=== PATIENT | male | born 1965 | race Two or more races ===

== ENCOUNTER 2016-11-14 18:54 | Inpatient (IN) | payer SELFPAY ==
[~2016-11-14] VITALS: Ht 170.2 cm; Wt 77.2 kg
[2016-11-14 20:20] LABS: Urine Bilirubin Negative (Negative); Urine Blood Negative /uL (Negative); Urine Color Yellow (Yellow); Urine Glucose Normal (Normal); Urine Hyaline Cast FEW /lpf (0 - 2); Urine Ketone Negative (Negative); Urine Mucus FEW (None Seen); Urine Nitrite Negative (Negative); Urine RBC 1 /hpf (0 - 3); Urine Squamous Epithelial Cell FEW /hpf (<5); Urine pH 5.5 (5.0-8.0)
[2016-11-14 20:37] LABS: Basophils # (auto) 0 uL; Basophils % (auto) 0.1 % (0.0-2.0); CONDITION Y; Eosinophils # (auto) 0 uL; Hemoglobin 14.9 g/dL (13.5-17.5); Lymphocytes # (auto) 0.5 uL; Lymphocytes % (auto) 3.9 % (10.0-50.0); Mean Corpuscular Hemoglobin 31.2 pg (28.0-32.0); Mean Corpuscular Volume 91.9 fL (80.0-100.0); Mean Platelet Volume 7.4 fL (7.4-10.4); Monocytes # (auto) 0.4 uL; Monocytes % (auto) 2.7 % (0.0-12.0); Neutrophils # (auto) 12.9 uL; Neutrophils % (auto) 93.3 % (37.0-80.0); Platelet Count (auto) 486 10^3/uL (140-450); White Blood Cell 13.8 10^3/uL (4.4-10.8)
[2016-11-14 21:00] LABS: Albumin 3.9 g/dL (3.4-5.0); Alkaline Phosphatase 66 U/L (45-117); Amylase 57 U/L (25-115); Anion Gap 11 (5-15); Aspartate Aminotransferase 14 U/L (15-37); BUN/Creatinine Ratio 20.2; Bilirubin, Total 1.1 mg/dL (0.2-1.0); Blood Urea Nitrogen 20 mg/dL (7-18); Calcium 8.5 mg/dL (8.5-10.1); Carbon Dioxide 25 mmol/L (21-32); Chloride 93 mmol/L (98-107); GFR African American 102 mL/min; GFR Non-African American 84 mL/min; Glucose 90 mg/dL (74-106); Magnesium 2.1 mg/dL (1.6-2.6); Potassium 4.2 mmol/L (3.5-5.1); Sodium 129 mmol/L (136-145); Total Protein 7.5 g/dL (6.4-8.2)
[2016-11-15] VITALS (22 sets, daily range): BP systolic 77–157; BP diastolic 34–101
[2016-11-15] MEDS ORDERED: SODIUM CHLORIDE 0.9% 500 ML IVB ONE (04:14)
[2016-11-15] MEDS ORDERED: HYDROmorphone HCL 2 MG/ML VL IV ONE (04:15)
[2016-11-15] MEDS ORDERED: ONDANSETRON HCL 4 MG/2 ML VIAL IV ONE (04:15)
[2016-11-15] MEDS ORDERED: PIPERACILLIN-TAZO 4.5GM 100 ML IV ONE (05:45)
[2016-11-15] MEDS ORDERED: metroNIDAZOLE 500MG/100ML 100 ML IV ONE (05:45)
[2016-11-15] MEDS ORDERED: PANTOPRAZOLE SODIUM 40 MG/10 ML VIAL IV ONE (06:00)
[2016-11-15] MEDS ORDERED: SODIUM CHLORIDE 0.9% 1,000 ML IV ONE ×3 (07:00→19:00)
[2016-11-15] MEDS ORDERED: cefTRIAXone 1GM/50ML D5W 50 ML IV ONE (07:00)
[2016-11-15] MEDS ORDERED: MORPHINE SULF INJ 2 MG/ML SYRINGE 1ML IV PRN (07:00)
[2016-11-15] MEDS ORDERED: NITROGLYCERIN 0.4 MG SL TAB SL PRN (07:00)
[2016-11-15] MEDS ORDERED: ONDANSETRON HCL 4 MG/2 ML VIAL IV PRN (07:00)
[2016-11-15] MEDS: SODIUM CHLORIDE 0.9% 1,000 ML IV SCH ×2 (07:29→12:47)
[2016-11-15] MEDS: HYDROmorphone HCL 2 MG/ML VL IV PRN ×3 (08:05→21:23)
[2016-11-15 08:31] LABS: Basophils # (auto) 0 uL; Basophils % (auto) 0.1 % (0.0-2.0); CONDITION Y; Eosinophils # (auto) 0 uL; Hematocrit 42.9 % (41.0-53.0); Hemoglobin 14.8 g/dL (13.5-17.5); Lymphocytes # (auto) 1.3 uL; Lymphocytes % (auto) 8.4 % (10.0-50.0); Mean Corpuscular Hemoglobin 31.4 pg (28.0-32.0); Mean Corpuscular Hgb Conc. 34.5 g/dL (32.0-36.0); Mean Corpuscular Volume 90.8 fL (80.0-100.0); Mean Platelet Volume 7.6 fL (7.4-10.4); Monocytes # (auto) 0.6 uL; Monocytes % (auto) 3.8 % (0.0-12.0); Neutrophils # (auto) 13.6 uL; Neutrophils % (auto) 87.7 % (37.0-80.0); Platelet Count (auto) 453 10^3/uL (140-450); Red Cell Distribution Width 14.1 % (11.6-16.0); White Blood Cell 15.5 10^3/uL (4.4-10.8)
[2016-11-15] MEDS ORDERED: POVIDONE IODINE 10 % TOPICAL OINT 30GM TOP ONE (08:31)
[2016-11-15] MEDS ORDERED: LIDOCAINE 1% HCL (LOCAL ANESTH.) INJ 20ML MDV ONE (08:31)
[2016-11-15] MEDS ORDERED: SUCCINYLCHOLINE CHLORIDE 20 MG/ML 10ML VIAL IV ONE (08:32)
[2016-11-15 08:47] LABS: Calcium 7.8 mg/dL (8.5-10.1); Potassium 4.4 mmol/L (3.5-5.1)
[2016-11-15 08:50] LABS: BUN/Creatinine Ratio 23.9
[2016-11-15 09:07] LABS: INR 1.05 (0.9-1.15); Partial Thromboplastin Time 31.1 sec (22.64-33.71); Prothrombin Time 11.4 sec (9.37-12.3)
[2016-11-15] MEDS ORDERED: MIDAZOLAM HCL 1MG/1ML-2 ML VIAL ONE (09:13)
[2016-11-15] MEDS ORDERED: fentaNYL CITRATE 5 ML ONE (09:13)
[2016-11-15] MEDS ORDERED: ROCURONIUM 10MG/ML 10ML VIAL IV ONE (10:05)
[2016-11-15] MEDS ORDERED: METOCLOPRAMIDE HCL 5MG/ml INJ 2ml VIAL ONE (10:05)
[2016-11-15] MEDS ORDERED: ONDANSETRON HCL 4 MG/2 ML VIAL ONE (10:05)
[2016-11-15] MEDS ORDERED: DEXAMETHASONE SOD PHOS 10MG/1ML VIAL INJ ONE (10:05)
[2016-11-15] MEDS ORDERED: LIDOCAINE HCL 100 MG/5ML (2%) SYRG INJ IV ONE (10:05)
[2016-11-15] MEDS ORDERED: ceFAZolin 1GM VL ONE ×2 (10:11→10:13)
[2016-11-15] MEDS ORDERED: BUPIVACAINE 0.25% INJ 50ML VIAL ONE (10:25)
[2016-11-15] MEDS ORDERED: D5W/SOD CHL 0.45% 1,000 ML IV SCH ×2 (11:00→20:00)
[2016-11-15] MEDS ORDERED: PROMETHAZINE HCL 25 MG/ML 1ML IV PRN (12:15)
[2016-11-15] MEDS: PANTOPRAZOLE SODIUM 40 MG/10 ML VIAL IV SCH (12:59)
[2016-11-15] MEDS: PIPERACILLIN-TAZOB 3.375GM 100 ML IV SCH ×2 (13:00→18:00)
[2016-11-15] MEDS: metroNIDAZOLE 500MG/100ML 100 ML IV SCH ×2 (14:48→22:00)
[2016-11-16] VITALS (39 sets, daily range): BP systolic 79–136; BP diastolic 29–76
[2016-11-16] MEDS: HYDROmorphone HCL 2 MG/ML VL IV PRN ×2 (03:57→17:32)
[2016-11-16 04:02] LABS: Basophils # (auto) 0 uL; CONDITION Y; Eosinophils # (auto) 0 uL; Eosinophils % (auto) 0.1 % (0.0-7.0); Hemoglobin 11.5 g/dL (13.5-17.5); Lymphocytes # (auto) 0.5 uL; Lymphocytes % (auto) 2.1 % (10.0-50.0); Mean Corpuscular Hemoglobin 31.5 pg (28.0-32.0); Mean Corpuscular Hgb Conc. 33.8 g/dL (32.0-36.0); Mean Corpuscular Volume 93.2 fL (80.0-100.0); Mean Platelet Volume 7.9 fL (7.4-10.4); Monocytes # (auto) 1.3 uL; Monocytes % (auto) 5.7 % (0.0-12.0); Neutrophils # (auto) 21.1 uL; Neutrophils % (auto) 92.1 % (37.0-80.0); Platelet Count (auto) 388 10^3/uL (140-450); Red Cell Distribution Width 14.6 % (11.6-16.0); White Blood Cell 22.9 10^3/uL (4.4-10.8)
[2016-11-16 04:14] LABS: Albumin 2.3 g/dL (3.4-5.0); BUN/Creatinine Ratio 23.1; Calcium 7.2 mg/dL (8.5-10.1); Potassium 4.3 mmol/L (3.5-5.1)
[2016-11-16 04:16] LABS: Bilirubin, Total 1.2 mg/dL (0.2-1.0); Total Protein 5.6 g/dL (6.4-8.2)
[2016-11-16] MEDS: metroNIDAZOLE 500MG/100ML 100 ML IV SCH ×3 (06:00→21:36)
[2016-11-16] MEDS: PIPERACILLIN-TAZOB 3.375GM 100 ML IV SCH ×4 (06:00→17:46)
[2016-11-16] MEDS ORDERED: SODIUM CHLORIDE 0.9% 1,000 ML IV ONE ×2 (07:15→11:00)
[2016-11-16] MEDS ORDERED: NITROGLYCERIN 0.4 MG SL TAB SL PRN (08:00)
[2016-11-16] MEDS ORDERED: MORPHINE SULF INJ 2 MG/ML SYRINGE 1ML IV PRN (08:00)
[2016-11-16] MEDS ORDERED: cefTRIAXone 1GM/50ML D5W 50 ML IV SCH (09:00)
[2016-11-16] MEDS: PANTOPRAZOLE SODIUM 40 MG/10 ML VIAL IV SCH (10:09)
[2016-11-16] MEDS ORDERED: VANCOMYCIN 1GM/250ML D5W 250 ML IV ONE (11:00)
[2016-11-16] MEDS ORDERED: VANCOMYCIN PER PHARMACY 0 MG IV SCH (11:00)
[2016-11-16 11:11] LABS: Amylase 28 U/L (25-115)
[2016-11-16 11:50] LABS: Hematocrit 34.5 % (41.0-53.0); Hemoglobin 11.9 g/dL (13.5-17.5)
[2016-11-16] MEDS: SODIUM CHLORIDE 0.9% 1,000 ML IV SCH ×2 (13:00→18:40)
[2016-11-16] MEDS: VANCOMYCIN 1GM/250ML D5W 250 ML IV SCH (22:26)
[2016-11-16 23:08] LABS: Hematocrit 31.6 % (41.0-53.0); Hemoglobin 10.7 g/dL (13.5-17.5)
[2016-11-17] VITALS (42 sets, daily range): BP systolic -15–167; BP diastolic -15–85
[2016-11-17] MEDS: PIPERACILLIN-TAZOB 3.375GM 100 ML IV SCH ×4 (00:03→19:55)
[2016-11-17] MEDS: SODIUM CHLORIDE 0.9% 1,000 ML IV SCH ×4 (00:49→21:51)
[2016-11-17] MEDS: HYDROmorphone HCL 2 MG/ML VL IV PRN ×2 (00:50→10:12)
[2016-11-17] MEDS: metroNIDAZOLE 500MG/100ML 100 ML IV SCH ×3 (04:58→21:51)
[2016-11-17 05:13] LABS: Basophils # (auto) 0 uL; Basophils % (auto) 0.1 % (0.0-2.0); CONDITION Y; Eosinophils # (auto) 0 uL; Eosinophils % (auto) 0.1 % (0.0-7.0); Hematocrit 30.3 % (41.0-53.0); Hemoglobin 10.2 g/dL (13.5-17.5); Lymphocytes # (auto) 0.8 uL; Lymphocytes % (auto) 4.2 % (10.0-50.0); Mean Corpuscular Hemoglobin 31.3 pg (28.0-32.0); Mean Corpuscular Hgb Conc. 33.7 g/dL (32.0-36.0); Mean Corpuscular Volume 92.9 fL (80.0-100.0); Monocytes # (auto) 1.1 uL; Monocytes % (auto) 5.7 % (0.0-12.0); Neutrophils # (auto) 17.4 uL; Neutrophils % (auto) 89.9 % (37.0-80.0); Platelet Count (auto) 370 10^3/uL (140-450); White Blood Cell 19.3 10^3/uL (4.4-10.8)
[2016-11-17 05:34] LABS: Potassium 3.8 mmol/L (3.5-5.1)
[2016-11-17 05:40] LABS: Albumin 2.1 g/dL (3.4-5.0); BUN/Creatinine Ratio 24.2; Bilirubin, Total 0.9 mg/dL (0.2-1.0); Calcium 7.4 mg/dL (8.5-10.1); Total Protein 5.6 g/dL (6.4-8.2)
[2016-11-17] MEDS: PANTOPRAZOLE SODIUM 40 MG/10 ML VIAL IV SCH (10:12)
[2016-11-17] MEDS: VANCOMYCIN 1GM/250ML D5W 250 ML IV SCH ×2 (12:00→23:39)
[2016-11-17] MEDS ORDERED: MORPHINE SULF INJ 2 MG/ML SYRINGE 1ML IV PRN (15:00)
[2016-11-17] MEDS ORDERED: NITROGLYCERIN 0.4 MG SL TAB SL PRN (15:00)
[2016-11-18] MEDS: PIPERACILLIN-TAZOB 3.375GM 100 ML IV SCH ×4 (02:40→20:26)
[2016-11-18 04:38] VITALS: BP 139/79
[2016-11-18 06:21] LABS: Basophils # (auto) 0 uL; CONDITION Y; Eosinophils # (auto) 0.1 uL; Eosinophils % (auto) 0.5 % (0.0-7.0); Hematocrit 32.5 % (41.0-53.0); Lymphocytes % (auto) 5.9 % (10.0-50.0); Mean Corpuscular Hemoglobin 31.4 pg (28.0-32.0); Mean Corpuscular Volume 92.3 fL (80.0-100.0); Monocytes # (auto) 1.4 uL; Monocytes % (auto) 7.8 % (0.0-12.0); Neutrophils # (auto) 14.9 uL; Neutrophils % (auto) 85.8 % (37.0-80.0); Platelet Count (auto) 413 10^3/uL (140-450); Red Cell Distribution Width 14.1 % (11.6-16.0); White Blood Cell 17.3 10^3/uL (4.4-10.8)
[2016-11-18] MEDS: metroNIDAZOLE 500MG/100ML 100 ML IV SCH ×3 (06:22→22:05)
[2016-11-18] MEDS: SODIUM CHLORIDE 0.9% 1,000 ML IV SCH (06:23)
[2016-11-18 06:40] LABS: Potassium 3.3 mmol/L (3.5-5.1)
[2016-11-18 06:44] LABS: Albumin 2.3 g/dL (3.4-5.0); BUN/Creatinine Ratio 26.8; Calcium 7.9 mg/dL (8.5-10.1)
[2016-11-18 06:48] LABS: Bilirubin, Total 1.3 mg/dL (0.2-1.0); Total Protein 6.2 g/dL (6.4-8.2)
[2016-11-18 09:00] VITALS: BP 145/79
[2016-11-18] MEDS ORDERED: POTASSIUM CHL 20MEQ/100ML 100 ML IV ONE (09:15)
[2016-11-18] MEDS: PANTOPRAZOLE SODIUM 40 MG/10 ML VIAL IV SCH (10:06)
[2016-11-18] MEDS: VANCOMYCIN 1GM/250ML D5W 250 ML IV SCH ×2 (11:40→23:37)
[2016-11-18] MEDS: SOD CHL 0.9%/ KCL 40MEQ 1,000 ML IV SCH ×2 (12:40→17:35)
[2016-11-18 13:00] VITALS: BP 152/85
[2016-11-18 17:00] VITALS: BP 155/87
[2016-11-18 21:49] VITALS: BP 150/83
[2016-11-19] MEDS: PIPERACILLIN-TAZOB 3.375GM 100 ML IV SCH ×4 (02:04→20:03)
[2016-11-19] MEDS: SOD CHL 0.9%/ KCL 40MEQ 1,000 ML IV SCH ×4 (02:06→23:01)
[2016-11-19 04:37] VITALS: BP 142/69
[2016-11-19] MEDS: metroNIDAZOLE 500MG/100ML 100 ML IV SCH ×3 (05:56→21:35)
[2016-11-19 09:17] LABS: CONDITION Y; DEFINITIVE SEE PRINTOUT; Hematocrit 38.6 % (41.0-53.0); Mean Corpuscular Hemoglobin 30.9 pg (28.0-32.0); Mean Corpuscular Hgb Conc. 33.7 g/dL (32.0-36.0); Mean Corpuscular Volume 91.6 fL (80.0-100.0); Mean Platelet Volume 7.4 fL (7.4-10.4); Platelet Count (auto) 518 10^3/uL (140-450); Red Cell Distribution Width 14.1 % (11.6-16.0); White Blood Cell 17.5 10^3/uL (4.4-10.8)
[2016-11-19 09:31] LABS: Metamyelocytes % 0; Myelocytes % 0; Promyelocytes % 0; Reactive Lymphocytes 0
[2016-11-19 09:32] LABS: Platelet Estimate Increased
[2016-11-19 09:36] LABS: BUN/Creatinine Ratio 18.8; Calcium 8.1 mg/dL (8.5-10.1); Potassium 3.6 mmol/L (3.5-5.1)
[2016-11-19 09:40] VITALS: BP 148/91
[2016-11-19] MEDS: PANTOPRAZOLE SODIUM 40 MG/10 ML VIAL IV SCH (10:11)
[2016-11-19] MEDS: VANCOMYCIN 1GM/250ML D5W 250 ML IV SCH ×2 (11:30→21:35)
[2016-11-19 13:00] VITALS: BP 148/91
[2016-11-19 17:00] VITALS: BP 135/79
[2016-11-19 21:26] VITALS: BP 127/77
[2016-11-20] MEDS: PIPERACILLIN-TAZOB 3.375GM 100 ML IV SCH ×4 (04:09→20:18)
[2016-11-20 05:10] VITALS: BP 125/77
[2016-11-20] MEDS: metroNIDAZOLE 500MG/100ML 100 ML IV SCH ×3 (05:21→21:24)
[2016-11-20 05:49] LABS: Basophils # (auto) 0 uL; Basophils % (auto) 0.2 % (0.0-2.0); CONDITION Y; Eosinophils # (auto) 0.2 uL; Eosinophils % (auto) 1.1 % (0.0-7.0); Hematocrit 36.5 % (41.0-53.0); Hemoglobin 12.4 g/dL (13.5-17.5); Lymphocytes # (auto) 1.6 uL; Lymphocytes % (auto) 9.7 % (10.0-50.0); Mean Corpuscular Hemoglobin 31.3 pg (28.0-32.0); Mean Corpuscular Hgb Conc. 33.8 g/dL (32.0-36.0); Mean Corpuscular Volume 92.4 fL (80.0-100.0); Mean Platelet Volume 8.4 fL (7.4-10.4); Monocytes # (auto) 1.4 uL; Monocytes % (auto) 8.9 % (0.0-12.0); Neutrophils # (auto) 12.8 uL; Neutrophils % (auto) 80.1 % (37.0-80.0); Platelet Count (auto) 515 10^3/uL (140-450); Red Cell Distribution Width 14.1 % (11.6-16.0)
[2016-11-20 06:30] LABS: Albumin 2.2 g/dL (3.4-5.0); Bilirubin, Total 0.8 mg/dL (0.2-1.0); Calcium 8.1 mg/dL (8.5-10.1); Potassium 3.9 mmol/L (3.5-5.1); Total Protein 5.9 g/dL (6.4-8.2)
[2016-11-20 07:52] VITALS: BP 120/63
[2016-11-20] MEDS: PANTOPRAZOLE 40 MG TAB PO SCH (10:15)
[2016-11-20] MEDS: Boost Glucose Control 8 Ounces PO SCH ×3 (12:00→21:24)
[2016-11-20 12:14] VITALS: BP 127/73
[2016-11-20] MEDS: SOD CHL 0.9%/ KCL 40MEQ 1,000 ML IV SCH ×2 (12:37→20:18)
[2016-11-20] MEDS: VANCOMYCIN 1GM/250ML D5W 250 ML IV SCH (12:37)
[2016-11-20 16:58] VITALS: BP 143/82
[2016-11-20 21:30] VITALS: BP 114/58
[2016-11-21] MEDS: VANCOMYCIN 1GM/250ML D5W 250 ML IV SCH (00:35)
[2016-11-21] MEDS: SOD CHL 0.9%/ KCL 40MEQ 1,000 ML IV SCH ×2 (01:05→12:15)
[2016-11-21] MEDS: PIPERACILLIN-TAZOB 3.375GM 100 ML IV SCH ×4 (02:14→20:45)
[2016-11-21 05:00] VITALS: BP 119/62
[2016-11-21 05:31] LABS: Basophils # (auto) 0 uL; Basophils % (auto) 0.2 % (0.0-2.0); CONDITION Y; DEFINITIVE SEE PRINTOUT; Eosinophils # (auto) 0.3 uL; Eosinophils % (auto) 1.7 % (0.0-7.0); Hematocrit 37.1 % (41.0-53.0); Hemoglobin 12.3 g/dL (13.5-17.5); Lymphocytes # (auto) 2.1 uL; Lymphocytes % (auto) 11.8 % (10.0-50.0); Mean Corpuscular Hemoglobin 30.9 pg (28.0-32.0); Mean Corpuscular Hgb Conc. 33.3 g/dL (32.0-36.0); Mean Corpuscular Volume 92.7 fL (80.0-100.0); Mean Platelet Volume 9.2 fL (7.4-10.4); Monocytes # (auto) 2.3 uL; Monocytes % (auto) 12.5 % (0.0-12.0); Neutrophils # (auto) 13.4 uL; Neutrophils % (auto) 73.8 % (37.0-80.0); Platelet Count (auto) 582 10^3/uL (140-450); Red Cell Distribution Width 13.9 % (11.6-16.0); White Blood Cell 18.1 10^3/uL (4.4-10.8)
[2016-11-21 05:55] LABS: Albumin 2.3 g/dL (3.4-5.0); BUN/Creatinine Ratio 11.3; Calcium 7.8 mg/dL (8.5-10.1); Potassium 4.3 mmol/L (3.5-5.1)
[2016-11-21 05:57] LABS: Bilirubin, Total 0.6 mg/dL (0.2-1.0)
[2016-11-21] MEDS: Boost Glucose Control 8 Ounces PO SCH ×4 (06:00→22:19)
[2016-11-21] MEDS: metroNIDAZOLE 500MG/100ML 100 ML IV SCH ×3 (06:03→23:26)
[2016-11-21 08:40] VITALS: BP 131/68
[2016-11-21] MEDS ORDERED: VANCOMYCIN PER PHARMACY 0 MG IV SCH (10:15)
[2016-11-21] MEDS: PANTOPRAZOLE 40 MG TAB PO SCH (11:21)
[2016-11-21] MEDS: VANCOMYCIN 1,250 MG in D5W 5% 250 ML IV SCH (11:50)
[2016-11-21 13:00] VITALS: BP 124/75
[2016-11-21 16:58] VITALS: BP 127/69
[2016-11-21 22:31] VITALS: BP 127/69
[2016-11-22] MEDS: VANCOMYCIN 1,250 MG in D5W 5% 250 ML IV SCH ×2 (00:32→12:24)
[2016-11-22] MEDS: PIPERACILLIN-TAZOB 3.375GM 100 ML IV SCH ×4 (02:27→21:45)
[2016-11-22 05:16] VITALS: BP 123/71
[2016-11-22] MEDS: Boost Glucose Control 8 Ounces PO SCH ×4 (05:23→22:00)
[2016-11-22] MEDS: metroNIDAZOLE 500MG/100ML 100 ML IV SCH ×3 (05:38→22:37)
[2016-11-22 07:14] LABS: Basophils # (auto) 0 uL; Basophils % (auto) 0.2 % (0.0-2.0); CONDITION Y; Eosinophils # (auto) 0.3 uL; Eosinophils % (auto) 1.6 % (0.0-7.0); Hematocrit 36.3 % (41.0-53.0); Hemoglobin 12.2 g/dL (13.5-17.5); Lymphocytes # (auto) 1.7 uL; Lymphocytes % (auto) 9.1 % (10.0-50.0); Mean Corpuscular Hemoglobin 31.1 pg (28.0-32.0); Mean Corpuscular Hgb Conc. 33.7 g/dL (32.0-36.0); Mean Corpuscular Volume 92.2 fL (80.0-100.0); Mean Platelet Volume 9.7 fL (7.4-10.4); Monocytes # (auto) 1.5 uL; Monocytes % (auto) 7.7 % (0.0-12.0); Neutrophils # (auto) 15.5 uL; Neutrophils % (auto) 81.4 % (37.0-80.0); Platelet Count (auto) 648 10^3/uL (140-450); Red Cell Distribution Width 14.3 % (11.6-16.0)
[2016-11-22 07:44] LABS: Albumin 2.5 g/dL (3.4-5.0); BUN/Creatinine Ratio 12.5; Bilirubin, Total 0.6 mg/dL (0.2-1.0); Calcium 8.1 mg/dL (8.5-10.1); Total Protein 6.5 g/dL (6.4-8.2)
[2016-11-22 08:00] VITALS: BP 113/69
[2016-11-22] MEDS: PANTOPRAZOLE 40 MG TAB PO SCH (11:21)
[2016-11-22 13:00] VITALS: BP 107/69
[2016-11-22 17:22] VITALS: BP 137/66
[2016-11-22 22:00] VITALS: BP 121/66
[2016-11-23] MEDS: VANCOMYCIN 1,250 MG in D5W 5% 250 ML IV SCH ×2 (01:26→14:05)
[2016-11-23] MEDS: PIPERACILLIN-TAZOB 3.375GM 100 ML IV SCH ×4 (03:08→20:59)
[2016-11-23 05:00] VITALS: BP 111/66
[2016-11-23] MEDS: metroNIDAZOLE 500MG/100ML 100 ML IV SCH ×3 (05:38→22:00)
[2016-11-23] MEDS: Boost Glucose Control 8 Ounces PO SCH ×4 (06:00→22:02)
[2016-11-23 06:16] LABS: Basophils # (auto) 0.1 uL; Basophils % (auto) 0.7 % (0.0-2.0); CONDITION Y; DEFINITIVE SEE PRINTOUT; Eosinophils # (auto) 0.2 uL; Eosinophils % (auto) 1.1 % (0.0-7.0); Hematocrit 36.5 % (41.0-53.0); Hemoglobin 12.6 g/dL (13.5-17.5); Lymphocytes # (auto) 2.1 uL; Lymphocytes % (auto) 11.1 % (10.0-50.0); Mean Corpuscular Hemoglobin 31.5 pg (28.0-32.0); Mean Corpuscular Hgb Conc. 34.5 g/dL (32.0-36.0); Mean Corpuscular Volume 91.5 fL (80.0-100.0); Mean Platelet Volume 8.6 fL (7.4-10.4); Monocytes # (auto) 1.8 uL; Monocytes % (auto) 9.4 % (0.0-12.0); Neutrophils # (auto) 14.9 uL; Neutrophils % (auto) 77.7 % (37.0-80.0); Platelet Count (auto) 741 10^3/uL (140-450); Red Cell Distribution Width 14.3 % (11.6-16.0); White Blood Cell 19.1 10^3/uL (4.4-10.8)
[2016-11-23 07:00] VITALS: BP 129/66
[2016-11-23] MEDS ORDERED: SODIUM CHLORIDE LOCK 10 ML ONE (09:48)
[2016-11-23] MEDS ORDERED: diphenhdrAMINE HCL 50 MG/1 ML VL ONE (09:49)
[2016-11-23] MEDS ORDERED: fentaNYL CITRATE 100 MCG/2 ML VL ONE ×2 (09:49→14:24)
[2016-11-23] MEDS ORDERED: MIDAZOLAM HCL 5 MG/ML-1ML VIAL ONE (09:49)
[2016-11-23] MEDS: PANTOPRAZOLE 40 MG TAB PO SCH (10:01)
[2016-11-23 11:30] VITALS: BP 117/67
[2016-11-23 11:54] LABS: INR 1.11 (0.9-1.15); Partial Thromboplastin Time 29.6 sec (22.64-33.71); Prothrombin Time 12.1 sec (9.37-12.3)
[2016-11-23] MEDS ORDERED: LIDOCAINE 2%HCL (LOCAL ANESTH.) INJ 20ML MDV ONE (14:14)
[2016-11-23] MEDS ORDERED: MIDAZOLAM HCL 1MG/1ML-2 ML VIAL ONE (14:24)
[2016-11-23 16:24] VITALS: BP 127/76
[2016-11-23 19:02] LABS: Body Fluid Polymorphonuclear 64 %
[2016-11-23] MEDS: HYDROmorphone HCL 2 MG/ML VL IV PRN (19:57)
[2016-11-23 21:24] VITALS: BP 104/63
[2016-11-24] MEDS: VANCOMYCIN 1,250 MG in D5W 5% 250 ML IV SCH ×2 (00:41→12:26)
[2016-11-24] MEDS: PIPERACILLIN-TAZOB 3.375GM 100 ML IV SCH ×4 (02:54→20:26)
[2016-11-24 05:14] VITALS: BP 117/68
[2016-11-24 05:49] LABS: Basophils # (auto) 0.1 uL; Basophils % (auto) 0.8 % (0.0-2.0); CONDITION Y; DEFINITIVE SEE PRINTOUT; Eosinophils # (auto) 0.1 uL; Eosinophils % (auto) 0.9 % (0.0-7.0); Hemoglobin 12.2 g/dL (13.5-17.5); Lymphocytes # (auto) 1.2 uL; Lymphocytes % (auto) 7.6 % (10.0-50.0); Mean Corpuscular Hemoglobin 31.3 pg (28.0-32.0); Mean Corpuscular Hgb Conc. 33.9 g/dL (32.0-36.0); Mean Corpuscular Volume 92.4 fL (80.0-100.0); Mean Platelet Volume 8.6 fL (7.4-10.4); Monocytes # (auto) 1.3 uL; Monocytes % (auto) 8.5 % (0.0-12.0); Neutrophils # (auto) 12.9 uL; Neutrophils % (auto) 82.2 % (37.0-80.0); Red Cell Distribution Width 14.2 % (11.6-16.0); White Blood Cell 15.7 10^3/uL (4.4-10.8)
[2016-11-24] MEDS: metroNIDAZOLE 500MG/100ML 100 ML IV SCH ×3 (06:02→20:28)
[2016-11-24] MEDS: Boost Glucose Control 8 Ounces PO SCH ×4 (06:03→20:28)
[2016-11-24 06:46] LABS: Platelet Count (auto) 786 10^3/uL (140-450)
[2016-11-24 09:00] VITALS: BP 109/59
[2016-11-24] MEDS: PANTOPRAZOLE 40 MG TAB PO SCH (10:03)
[2016-11-24 12:11] VITALS: BP 119/69
[2016-11-24 16:18] VITALS: BP 121/66
[2016-11-24 20:00] VITALS: BP 122/64
[2016-11-25] MEDS: VANCOMYCIN 1,250 MG in D5W 5% 250 ML IV SCH ×3 (00:07→23:40)
[2016-11-25] MEDS: PIPERACILLIN-TAZOB 3.375GM 100 ML IV SCH ×4 (03:07→20:54)
[2016-11-25 04:54] VITALS: BP 103/56
[2016-11-25] MEDS: Boost Glucose Control 8 Ounces PO SCH ×4 (06:00→20:55)
[2016-11-25] MEDS: metroNIDAZOLE 500MG/100ML 100 ML IV SCH ×3 (06:04→20:55)
[2016-11-25 06:29] LABS: Basophils # (auto) 0.1 uL; Basophils % (auto) 0.6 % (0.0-2.0); CONDITION Y; DEFINITIVE SEE PRINTOUT; Eosinophils # (auto) 0.2 uL; Eosinophils % (auto) 1.7 % (0.0-7.0); Hematocrit 36.8 % (41.0-53.0); Hemoglobin 12.4 g/dL (13.5-17.5); Lymphocytes # (auto) 1.5 uL; Lymphocytes % (auto) 10.1 % (10.0-50.0); Mean Corpuscular Hgb Conc. 33.6 g/dL (32.0-36.0); Mean Corpuscular Volume 92.1 fL (80.0-100.0); Mean Platelet Volume 8.9 fL (7.4-10.4); Monocytes # (auto) 1.2 uL; Monocytes % (auto) 8.1 % (0.0-12.0); Neutrophils # (auto) 11.4 uL; Neutrophils % (auto) 79.5 % (37.0-80.0); Red Cell Distribution Width 14.5 % (11.6-16.0); White Blood Cell 14.4 10^3/uL (4.4-10.8)
[2016-11-25 06:38] LABS: Platelet Count (auto) 939 10^3/uL (140-450)
[2016-11-25 06:48] LABS: BUN/Creatinine Ratio 14.3; Calcium 8.4 mg/dL (8.5-10.1)
[2016-11-25 09:00] VITALS: BP 110/63
[2016-11-25] MEDS: PANTOPRAZOLE 40 MG TAB PO SCH (11:22)
[2016-11-25 14:45] VITALS: BP 112/66
[2016-11-25 17:30] VITALS: BP 113/64
[2016-11-25 21:37] VITALS: BP 124/65
[2016-11-26] MEDS: PIPERACILLIN-TAZOB 3.375GM 100 ML IV SCH ×4 (03:17→20:32)
[2016-11-26 04:39] VITALS: BP 105/54
[2016-11-26 05:39] LABS: Basophils # (auto) 0 uL; Basophils % (auto) 0.2 % (0.0-2.0); CONDITION Y; DEFINITIVE SEE PRINTOUT; Eosinophils # (auto) 0.2 uL; Eosinophils % (auto) 1.6 % (0.0-7.0); Hematocrit 37.6 % (41.0-53.0); Hemoglobin 12.6 g/dL (13.5-17.5); Lymphocytes # (auto) 1.5 uL; Lymphocytes % (auto) 10.6 % (10.0-50.0); Mean Corpuscular Hgb Conc. 33.5 g/dL (32.0-36.0); Mean Corpuscular Volume 92.5 fL (80.0-100.0); Mean Platelet Volume 7.9 fL (7.4-10.4); Monocytes % (auto) 6.9 % (0.0-12.0); Neutrophils # (auto) 11.4 uL; Neutrophils % (auto) 80.7 % (37.0-80.0); Red Cell Distribution Width 14.2 % (11.6-16.0); White Blood Cell 14.2 10^3/uL (4.4-10.8)
[2016-11-26 05:52] LABS: Potassium 4.3 mmol/L (3.5-5.1)
[2016-11-26 06:00] LABS: Albumin 2.8 g/dL (3.4-5.0); Calcium 8.3 mg/dL (8.5-10.1)
[2016-11-26] MEDS: Boost Glucose Control 8 Ounces PO SCH ×4 (06:00→21:41)
[2016-11-26 06:06] LABS: Bilirubin, Total 0.4 mg/dL (0.2-1.0); Total Protein 6.9 g/dL (6.4-8.2)
[2016-11-26] MEDS: metroNIDAZOLE 500MG/100ML 100 ML IV SCH ×3 (06:08→21:12)
[2016-11-26 06:36] LABS: Platelet Count (auto) 956 10^3/uL (140-450)
[2016-11-26] MEDS: PANTOPRAZOLE 40 MG TAB PO SCH (08:58)
[2016-11-26 09:39] VITALS: BP 103/52
[2016-11-26] MEDS: VANCOMYCIN 1,250 MG in D5W 5% 250 ML IV SCH ×2 (11:38→23:40)
[2016-11-26 12:18] VITALS: BP 138/61
[2016-11-26 13:00] LABS: Basophils # (auto) 0.1 uL; Basophils % (auto) 0.8 % (0.0-2.0); CONDITION Y; DEFINITIVE SEE PRINTOUT; Eosinophils # (auto) 0.1 uL; Eosinophils % (auto) 0.8 % (0.0-7.0); Hematocrit 39.3 % (41.0-53.0); Hemoglobin 13.1 g/dL (13.5-17.5); Lymphocytes # (auto) 1.6 uL; Lymphocytes % (auto) 11.5 % (10.0-50.0); Mean Corpuscular Hemoglobin 30.9 pg (28.0-32.0); Mean Corpuscular Hgb Conc. 33.5 g/dL (32.0-36.0); Mean Corpuscular Volume 92.5 fL (80.0-100.0); Mean Platelet Volume 7.7 fL (7.4-10.4); Monocytes # (auto) 1.1 uL; Monocytes % (auto) 8.2 % (0.0-12.0); Neutrophils % (auto) 78.7 % (37.0-80.0); White Blood Cell 13.9 10^3/uL (4.4-10.8)
[2016-11-26 13:14] LABS: Platelet Count (auto) 973 10^3/uL (140-450)
[2016-11-26 17:00] VITALS: BP 115/68
[2016-11-26 22:00] VITALS: BP 114/56
[2016-11-26] MEDS ORDERED: MORPHINE SULF INJ 2 MG/ML SYRINGE 1ML IV PRN (23:00)
[2016-11-26] MEDS ORDERED: HYDROmorphone HCL 2 MG/ML VL IV PRN (23:00)
[2016-11-27] MEDS: PIPERACILLIN-TAZOB 3.375GM 100 ML IV SCH ×3 (04:29→15:00)
[2016-11-27 05:00] VITALS: BP 113/71
[2016-11-27] MEDS: Boost Glucose Control 8 Ounces PO SCH ×2 (06:00→12:00)
[2016-11-27] MEDS: metroNIDAZOLE 500MG/100ML 100 ML IV SCH ×2 (06:31→15:04)
[2016-11-27 09:00] VITALS: BP 131/77
[2016-11-27] MEDS: PANTOPRAZOLE 40 MG TAB PO SCH (09:20)
[2016-11-27] MEDS: VANCOMYCIN 1,250 MG in D5W 5% 250 ML IV SCH (12:38)
[2016-11-27 13:00] VITALS: BP 118/60
[2016-11-27 15:54] VITALS: BP 118/60
[2016-11-27 16:52] VITALS: BP 118/60
== END 2016-11-27 16:52 | disposition home or self-care (01) | DRG 853 ==
LOC: ER 18:55 → TELE 18:56 → ICU WEST 11-15 10:54 → EAST 11-17 11:11 → TELE-EAST 11-17 14:51
PROVIDERS: ADMIT Nurse Practitioner; ATTEND Internal Medicine Pulmonary Disease
PROC: 0DU907Z Supplement Duodenum with Autologous Tissue Substitute, Open Approach (ICD-10-PCS; 2016-11-15)
PROC: 02HV33Z Insertion of Infusion Device into Superior Vena Cava, Percutaneous Approach (ICD-10-PCS; 2016-11-15)
PROC: 0W9J0ZZ Drainage of Pelvic Cavity, Open Approach (ICD-10-PCS; principal; 2016-11-15 09:15)
PROC: 0W9J30Z Drainage of Pelvic Cavity with Drainage Device, Percutaneous Approach (ICD-10-PCS; 2016-11-23)
DX: A41.9 Sepsis, unspecified organism (principal); E43 Unspecified severe protein-calorie malnutrition; K63.1 Perforation of intestine (nontraumatic); K65.1 Peritoneal abscess; J18.9 Pneumonia, unspecified organism; J98.11 Atelectasis; R18.8 Other ascites; E87.1 Hypo-osmolality and hyponatremia; K56.7 Ileus, unspecified; K66.8 Other specified disorders of peritoneum; K42.9 Umbilical hernia without obstruction or gangrene; K80.20 Calculus of gallbladder without cholecystitis without obstruction; M43.07 Spondylolysis, lumbosacral region; M43.10 Spondylolisthesis, site unspecified; D72.828 Other elevated white blood cell count; E87.6 Hypokalemia; Z83.3 Family history of diabetes mellitus; Z90.49 Acquired absence of other specified parts of digestive tract; Z68.26 Body mass index [BMI] 26.0-26.9, adult
CPT/HCPCS: 36415; 71010; 72192; 74176; 75989; 80048; 80053; 80202; 81001; 82150; 83605; 83690; 83735; 84484; 85007; 85014; 85018; 85025; 85027; 85610; 85652; 85730; 86850; 86900; 86901; 87040; 87070; 87075; 87081; 87205; 89051; 93005; 96361; 96365; 96367; 96375; 99291; C1729; C9113; J0330; J0690; J1100; J2001; J2250; J2405; J2543; J3480; J3490; J7060

== ENCOUNTER 2016-12-10 08:18 | Emergency (ER) | payer SELFPAY ==
[~2016-12-10] VITALS: Ht 180.3 cm; Wt 73.9 kg
[2016-12-10 09:08] LABS: Basophils # (auto) 0 uL; Basophils % (auto) 0.3 % (0.0-2.0); CONDITION Y; Eosinophils # (auto) 0.2 uL; Eosinophils % (auto) 2.1 % (0.0-7.0); Hematocrit 38.9 % (41.0-53.0); Hemoglobin 13.2 g/dL (13.5-17.5); Lymphocytes # (auto) 2.1 uL; Lymphocytes % (auto) 20.8 % (10.0-50.0); Mean Corpuscular Hemoglobin 30.5 pg (28.0-32.0); Mean Corpuscular Hgb Conc. 33.8 g/dL (32.0-36.0); Mean Corpuscular Volume 90.2 fL (80.0-100.0); Mean Platelet Volume 8.1 fL (7.4-10.4); Monocytes # (auto) 0.8 uL; Monocytes % (auto) 8.1 % (0.0-12.0); Neutrophils # (auto) 7.1 uL; Neutrophils % (auto) 68.7 % (37.0-80.0); Platelet Count (auto) 584 10^3/uL (140-450); Red Cell Distribution Width 13.5 % (11.6-16.0); White Blood Cell 10.3 10^3/uL (4.4-10.8)
[2016-12-10 09:29] LABS: Albumin 3.5 g/dL (3.4-5.0); BUN/Creatinine Ratio 13.3; Potassium 3.6 mmol/L (3.5-5.1)
[2016-12-10 09:31] LABS: Bilirubin, Total 0.3 mg/dL (0.2-1.0); Total Protein 7.3 g/dL (6.4-8.2)
[2016-12-10 09:33] VITALS: BP 144/81
[2016-12-10] MEDS ORDERED: SODIUM CHLORIDE 0.9% 1,000 ML IV ONE (09:37)
== END 2016-12-10 12:34 | disposition home or self-care (01) ==
LOC: ER 08:18
DX: T81.4XXA Infection following a procedure, initial encounter (principal); Z90.49 Acquired absence of other specified parts of digestive tract; R10.30 Lower abdominal pain, unspecified; Z98.890 Other specified postprocedural states
CPT/HCPCS: 36415; 80053; 85025; 87077; 87186; 87205; 94761; 96360; 99284; J7030; J7040

== ENCOUNTER 2016-12-12 07:52 | Inpatient (IN) | payer SELFPAY ==
[~2016-12-12] VITALS: Ht 180.3 cm; Wt 107.6 kg
[2016-12-12] MEDS ORDERED: PIPERACILLIN-TAZOB 3.375GM 100 ML IV ONE (09:00)
[2016-12-12] MEDS ORDERED: SODIUM CHLORIDE 0.9% 1,000 ML IV ONE (09:00)
[2016-12-12] MEDS ORDERED: KETOROLAC TROMETH 30 MG/ML 1ML VIAL IV ONE (09:00)
[2016-12-12] MEDS ORDERED: VANCOMYCIN 1GM/250ML D5W 250 ML IV ONE (09:00)
[2016-12-12] MEDS ORDERED: metroNIDAZOLE 500MG/100ML 100 ML IV ONE (09:00)
[2016-12-12 09:44] LABS: Basophils # (auto) 0.1 uL; Basophils % (auto) 0.8 % (0.0-2.0); CONDITION Y; Eosinophils # (auto) 0.2 uL; Hematocrit 39.1 % (41.0-53.0); Hemoglobin 13.2 g/dL (13.5-17.5); Lymphocytes % (auto) 17.7 % (10.0-50.0); Mean Corpuscular Hemoglobin 30.3 pg (28.0-32.0); Mean Corpuscular Hgb Conc. 33.8 g/dL (32.0-36.0); Mean Corpuscular Volume 89.4 fL (80.0-100.0); Mean Platelet Volume 8.2 fL (7.4-10.4); Monocytes # (auto) 0.9 uL; Monocytes % (auto) 8.2 % (0.0-12.0); Neutrophils # (auto) 8.2 uL; Neutrophils % (auto) 71.3 % (37.0-80.0); Platelet Count (auto) 525 10^3/uL (140-450); Red Cell Distribution Width 13.6 % (11.6-16.0); White Blood Cell 11.5 10^3/uL (4.4-10.8)
[2016-12-12] MEDS ORDERED: IOHEXOL 300 MG/ML 100ML BOTTLE IJ ONE (10:04)
[2016-12-12 10:05] LABS: Albumin 3.3 g/dL (3.4-5.0); BUN/Creatinine Ratio 14.7; Bilirubin, Total 0.2 mg/dL (0.2-1.0); Calcium 8.9 mg/dL (8.5-10.1); Potassium 3.4 mmol/L (3.5-5.1); Total Protein 7.2 g/dL (6.4-8.2)
[2016-12-12] MEDS ORDERED: PROMETHAZINE HCL 25 MG/ML 1ML IV PRN (10:15)
[2016-12-12] MEDS ORDERED: VANCOMYCIN PER PHARMACY 0 MG IV SCH (10:15)
[2016-12-12] MEDS ORDERED: MORPHINE SULF INJ 2 MG/ML SYRINGE 1ML IV PRN ×2 (10:15)
[2016-12-12] MEDS ORDERED: NITROGLYCERIN 0.4 MG SL TAB SL PRN (10:15)
[2016-12-12] MEDS ORDERED: MORPHINE SULFATE 4 MG/ML SYRG IV PRN (10:15)
[2016-12-12] MEDS: SODIUM CHLORIDE 0.9% 1,000 ML IV SCH ×3 (10:32→21:20)
[2016-12-12] MEDS ORDERED: VANCOMYCIN 1GM/250ML D5W 250 ML IV SCH (11:00)
[2016-12-12] MEDS: FAMOTIDINE (10MG/ML) 2ML VL IV SCH ×2 (12:26→21:49)
[2016-12-12] MEDS: PIPERACILLIN-TAZOB 3.375GM 100 ML IV SCH ×2 (13:10→18:10)
[2016-12-12 13:43] VITALS: BP 135/77
[2016-12-12 17:10] VITALS: BP 145/74
[2016-12-12] MEDS: VANCOMYCIN 1GM/250ML D5W 250 ML IV SCH (21:16)
[2016-12-12 22:05] VITALS: BP 134/79
[2016-12-13] MEDS: PIPERACILLIN-TAZOB 3.375GM 100 ML IV SCH ×4 (00:06→18:00)
[2016-12-13] MEDS: VANCOMYCIN 1GM/250ML D5W 250 ML IV SCH (05:10)
[2016-12-13 05:19] VITALS: BP 120/71
[2016-12-13] MEDS: SODIUM CHLORIDE 0.9% 1,000 ML IV SCH ×2 (06:01→16:01)
[2016-12-13 06:28] LABS: Basophils # (auto) 0.1 uL; Basophils % (auto) 0.9 % (0.0-2.0); CONDITION Y; Eosinophils # (auto) 0.4 uL; Eosinophils % (auto) 3.5 % (0.0-7.0); Hematocrit 37.1 % (41.0-53.0); Hemoglobin 12.5 g/dL (13.5-17.5); Lymphocytes # (auto) 1.7 uL; Lymphocytes % (auto) 16.1 % (10.0-50.0); Mean Corpuscular Hemoglobin 30.9 pg (28.0-32.0); Mean Corpuscular Hgb Conc. 33.8 g/dL (32.0-36.0); Mean Corpuscular Volume 91.3 fL (80.0-100.0); Mean Platelet Volume 8.4 fL (7.4-10.4); Monocytes % (auto) 9.9 % (0.0-12.0); Neutrophils # (auto) 7.3 uL; Neutrophils % (auto) 69.6 % (37.0-80.0); Platelet Count (auto) 507 10^3/uL (140-450); Red Cell Distribution Width 13.4 % (11.6-16.0); White Blood Cell 10.5 10^3/uL (4.4-10.8)
[2016-12-13 06:49] LABS: BUN/Creatinine Ratio 10.3; Bilirubin, Total 0.5 mg/dL (0.2-1.0); Calcium 8.5 mg/dL (8.5-10.1); Potassium 3.2 mmol/L (3.5-5.1); Total Protein 6.6 g/dL (6.4-8.2)
[2016-12-13 08:45] VITALS: BP 140/80
[2016-12-13] MEDS: ENOXAPARIN SOD 40 MG/0.4 ML SYRINGE SC SCH (10:00)
[2016-12-13] MEDS: FAMOTIDINE (10MG/ML) 2ML VL IV SCH ×2 (10:15→21:51)
[2016-12-13 13:00] VITALS: BP 129/79
[2016-12-13] MEDS: VANCOMYCIN 1,250 MG in D5W 5% 250 ML IV SCH (15:00)
[2016-12-13 17:23] VITALS: BP 119/74
[2016-12-13] MEDS ORDERED: VANCOMYCIN 1GM/250ML D5W 250 ML IV ONE (17:26)
[2016-12-13 21:21] VITALS: BP 134/75
[2016-12-14] MEDS: PIPERACILLIN-TAZOB 3.375GM 100 ML IV SCH ×4 (00:02→18:31)
[2016-12-14] MEDS: VANCOMYCIN 1,250 MG in D5W 5% 250 ML IV SCH ×2 (04:07→16:25)
[2016-12-14 05:10] VITALS: BP 133/79
[2016-12-14 07:50] VITALS: BP 137/98
[2016-12-14 09:00] VITALS: BP 137/98
[2016-12-14] MEDS: FAMOTIDINE (10MG/ML) 2ML VL IV SCH ×2 (10:08→21:41)
[2016-12-14] MEDS: ENOXAPARIN SOD 40 MG/0.4 ML SYRINGE SC SCH (10:08)
[2016-12-14 12:00] VITALS: BP 132/76
[2016-12-14] MEDS: SODIUM CHLORIDE 0.9% 1,000 ML IV SCH (12:01)
[2016-12-14] MEDS ORDERED: VANCOMYCIN 1GM/250ML D5W 0 ML IV ONE (16:11)
[2016-12-14 16:44] VITALS: BP 134/84
[2016-12-14] MEDS: PRO-STAT 64 30ML PO SCH (18:00)
[2016-12-14] MEDS: ASCORBIC ACID 500 MG TAB PO SCH (21:41)
[2016-12-14 22:00] VITALS: BP 130/74
[2016-12-15] MEDS: VANCOMYCIN 1,250 MG in D5W 5% 250 ML IV SCH (03:10)
[2016-12-15 05:00] VITALS: BP 140/75
[2016-12-15] MEDS: PIPERACILLIN-TAZOB 3.375GM 100 ML IV SCH ×5 (05:52→23:56)
[2016-12-15 08:00] VITALS: BP 136/75
[2016-12-15] MEDS: ASCORBIC ACID 500 MG TAB PO SCH ×2 (09:45→21:31)
[2016-12-15] MEDS: FAMOTIDINE (10MG/ML) 2ML VL IV SCH ×2 (09:45→21:31)
[2016-12-15] MEDS: MULTIPLE VITAMINS W/ MINERALS TAB PO SCH (09:45)
[2016-12-15] MEDS: ENOXAPARIN SOD 40 MG/0.4 ML SYRINGE SC SCH (09:45)
[2016-12-15] MEDS: SODIUM CHLORIDE 0.9% 1,000 ML IV SCH ×3 (09:46→18:01)
[2016-12-15] MEDS: PRO-STAT 64 30ML PO SCH ×2 (09:46→18:00)
[2016-12-15 12:00] VITALS: BP 130/80
[2016-12-15] MEDS ORDERED: POTASSIUM CHL 20 Meq TABLET PO ONE (14:15)
[2016-12-15 16:50] VITALS: BP 112/66
[2016-12-15 22:00] VITALS: BP 115/70
[2016-12-16 05:00] VITALS: BP 137/74
[2016-12-16 06:26] LABS: Basophils # (auto) 0 uL; Basophils % (auto) 0.5 % (0.0-2.0); CONDITION Y; Eosinophils # (auto) 0.3 uL; Eosinophils % (auto) 2.7 % (0.0-7.0); Hematocrit 35.7 % (41.0-53.0); Lymphocytes # (auto) 1.4 uL; Lymphocytes % (auto) 15.1 % (10.0-50.0); Mean Corpuscular Hemoglobin 30.4 pg (28.0-32.0); Mean Corpuscular Hgb Conc. 33.5 g/dL (32.0-36.0); Mean Corpuscular Volume 90.7 fL (80.0-100.0); Mean Platelet Volume 8.3 fL (7.4-10.4); Monocytes # (auto) 1.2 uL; Neutrophils # (auto) 6.6 uL; Neutrophils % (auto) 68.7 % (37.0-80.0); Platelet Count (auto) 456 10^3/uL (140-450); Red Cell Distribution Width 13.7 % (11.6-16.0); White Blood Cell 9.6 10^3/uL (4.4-10.8)
[2016-12-16] MEDS: PIPERACILLIN-TAZOB 3.375GM 100 ML IV SCH ×4 (06:27→23:29)
[2016-12-16] MEDS: SODIUM CHLORIDE 0.9% 1,000 ML IV SCH ×2 (06:28→14:01)
[2016-12-16 06:40] LABS: Potassium 3.8 mmol/L (3.5-5.1)
[2016-12-16 06:51] LABS: BUN/Creatinine Ratio 4.2; Calcium 8.6 mg/dL (8.5-10.1)
[2016-12-16 08:00] VITALS: BP 144/89
[2016-12-16 12:01] VITALS: BP 134/85
[2016-12-16] MEDS: PRO-STAT 64 30ML PO SCH ×2 (12:14→18:00)
[2016-12-16] MEDS: MULTIPLE VITAMINS W/ MINERALS TAB PO SCH (12:14)
[2016-12-16] MEDS: ASCORBIC ACID 500 MG TAB PO SCH ×2 (12:14→21:01)
[2016-12-16] MEDS: FAMOTIDINE (10MG/ML) 2ML VL IV SCH ×2 (12:14→21:01)
[2016-12-16] MEDS: ENOXAPARIN SOD 40 MG/0.4 ML SYRINGE SC SCH (12:14)
[2016-12-16 17:10] VITALS: BP 157/88
[2016-12-16 22:00] VITALS: BP 131/71
[2016-12-17] MEDS: SODIUM CHLORIDE 0.9% 1,000 ML IV SCH ×3 (00:01→22:06)
[2016-12-17 05:00] VITALS: BP 148/87
[2016-12-17 05:53] LABS: Albumin 2.9 g/dL (3.4-5.0); BUN/Creatinine Ratio 5.7; Bilirubin, Total 0.8 mg/dL (0.2-1.0); Calcium 8.4 mg/dL (8.5-10.1); Potassium 3.7 mmol/L (3.5-5.1); Total Protein 6.9 g/dL (6.4-8.2)
[2016-12-17 06:11] LABS: INR 1.04 (0.9-1.15); Partial Thromboplastin Time 29.4 sec (22.64-33.71); Prothrombin Time 11.3 sec (9.37-12.3)
[2016-12-17] MEDS: PIPERACILLIN-TAZOB 3.375GM 100 ML IV SCH ×3 (06:43→17:55)
[2016-12-17] MEDS: PRO-STAT 64 30ML PO SCH ×2 (08:00→17:56)
[2016-12-17 08:06] LABS: Urine Bilirubin Negative (Negative); Urine Blood Negative /uL (Negative); Urine Color Colorless (Yellow); Urine Glucose Normal (Normal); Urine Hyaline Cast FEW /lpf (0 - 2); Urine Ketone Negative (Negative); Urine Nitrite Negative (Negative); Urine RBC 1 /hpf (0 - 3); Urine Urobilinogen Normal (Negative); Urine pH 5.5 (5.0-8.0)
[2016-12-17 08:07] VITALS: BP 149/87
[2016-12-17] MEDS: ENOXAPARIN SOD 40 MG/0.4 ML SYRINGE SC SCH (10:00)
[2016-12-17] MEDS: FAMOTIDINE (10MG/ML) 2ML VL IV SCH ×2 (10:15→21:59)
[2016-12-17] MEDS ORDERED: VANCOMYCIN 500 MG in D5W 5% 100 ML IV ONE (12:00)
[2016-12-17 12:30] VITALS: BP 135/82
[2016-12-17] MEDS: ASCORBIC ACID 500 MG TAB PO SCH ×2 (14:07→21:57)
[2016-12-17] MEDS: MULTIPLE VITAMINS W/ MINERALS TAB PO SCH (14:07)
[2016-12-17 16:21] VITALS: BP 142/94
[2016-12-17 21:30] VITALS: BP 137/81
[2016-12-18] MEDS: PIPERACILLIN-TAZOB 3.375GM 100 ML IV SCH ×5 (00:03→23:31)
[2016-12-18 05:19] VITALS: BP 146/84
[2016-12-18] MEDS: SODIUM CHLORIDE 0.9% 1,000 ML IV SCH ×3 (06:01→23:41)
[2016-12-18] MEDS: PRO-STAT 64 30ML PO SCH ×2 (08:00→18:16)
[2016-12-18 09:00] VITALS: BP 139/87
[2016-12-18] MEDS: ENOXAPARIN SOD 40 MG/0.4 ML SYRINGE SC SCH (10:00)
[2016-12-18] MEDS ORDERED: VANCOMYCIN 500 MG in D5W 5% 100 ML IV ONE (10:00)
[2016-12-18] MEDS: ASCORBIC ACID 500 MG TAB PO SCH ×2 (10:00→21:54)
[2016-12-18] MEDS: MULTIPLE VITAMINS W/ MINERALS TAB PO SCH (10:00)
[2016-12-18] MEDS: FAMOTIDINE (10MG/ML) 2ML VL IV SCH ×2 (10:15→21:54)
[2016-12-18 12:48] VITALS: BP 140/80
[2016-12-18] MEDS ORDERED: BUPIVACAINE 0.25% INJ 50ML VIAL ONE (13:13)
[2016-12-18] MEDS ORDERED: LIDOCAINE 1% HCL (LOCAL ANESTH.) INJ 20ML MDV ONE (13:13)
[2016-12-18] MEDS ORDERED: LIDOCAINE HCL (LOCAL ANESTH.) 0.5 % 50ML MDV IJ ONE ×2 (13:13→13:14)
[2016-12-18] MEDS ORDERED: ceFAZolin 1GM VL ONE (13:14)
[2016-12-18] MEDS ORDERED: LIDOCAINE W/ EPINEPHRINE 1 % INJ 30ML ONE (13:14)
[2016-12-18] MEDS ORDERED: BUPIVACAINE 0.5% P/F INJ 10 ML VIAL ONE (13:14)
[2016-12-18] MEDS ORDERED: fentaNYL CITRATE 100 MCG/2 ML VL ONE (13:47)
[2016-12-18] MEDS ORDERED: MIDAZOLAM HCL 1MG/1ML-2 ML VIAL ONE (13:47)
[2016-12-18] MEDS ORDERED: PROPOFOL 10 MG/ML 20 ML IV ONE (13:48)
[2016-12-18] MEDS ORDERED: ONDANSETRON HCL 4 MG/2 ML VIAL ONE (13:48)
[2016-12-18] MEDS ORDERED: METOCLOPRAMIDE HCL 5MG/ml INJ 2ml VIAL ONE (13:48)
[2016-12-18] MEDS ORDERED: LIDOCAINE HCL 2 %PF INJ 10ML AMP IJ ONE (13:48)
[2016-12-18] MEDS ORDERED: fentaNYL CITRATE 100 MCG/2 ML VL IV ONE (15:00)
[2016-12-18] MEDS ORDERED: HYDROmorphone HCL 2 MG/ML VL IV PRN (15:00)
[2016-12-18] MEDS ORDERED: METOCLOPRAMIDE HCL 5MG/ml INJ 2ml VIAL IV ONE (15:00)
[2016-12-18] MEDS ORDERED: ONDANSETRON HCL 4 MG/2 ML VIAL IV ONE (15:00)
[2016-12-18 16:30] VITALS: BP 143/93
[2016-12-18 22:00] VITALS: BP 145/84
[2016-12-19] MEDS: PIPERACILLIN-TAZOB 3.375GM 100 ML IV SCH ×4 (05:30→23:39)
[2016-12-19 06:00] VITALS: BP 139/86
[2016-12-19 06:58] LABS: Basophils # (auto) 0.1 uL; Basophils % (auto) 0.6 % (0.0-2.0); CONDITION Y; Eosinophils # (auto) 0.2 uL; Eosinophils % (auto) 1.6 % (0.0-7.0); Hematocrit 38.9 % (41.0-53.0); Hemoglobin 13.3 g/dL (13.5-17.5); Lymphocytes # (auto) 2.2 uL; Lymphocytes % (auto) 16.5 % (10.0-50.0); Mean Corpuscular Hemoglobin 30.7 pg (28.0-32.0); Mean Corpuscular Hgb Conc. 34.1 g/dL (32.0-36.0); Mean Corpuscular Volume 90.1 fL (80.0-100.0); Mean Platelet Volume 8.3 fL (7.4-10.4); Monocytes % (auto) 7.5 % (0.0-12.0); Neutrophils # (auto) 9.9 uL; Neutrophils % (auto) 73.8 % (37.0-80.0); Platelet Count (auto) 500 10^3/uL (140-450); Red Cell Distribution Width 13.7 % (11.6-16.0); White Blood Cell 13.5 10^3/uL (4.4-10.8)
[2016-12-19 07:23] LABS: BUN/Creatinine Ratio 7.6; Calcium 9.2 mg/dL (8.5-10.1); Potassium 3.5 mmol/L (3.5-5.1)
[2016-12-19] MEDS: PRO-STAT 64 30ML PO SCH ×2 (08:00→18:00)
[2016-12-19 08:30] VITALS: BP 146/80
[2016-12-19] MEDS: ASCORBIC ACID 500 MG TAB PO SCH ×2 (09:45→22:01)
[2016-12-19] MEDS: ENOXAPARIN SOD 40 MG/0.4 ML SYRINGE SC SCH (09:46)
[2016-12-19] MEDS: MULTIPLE VITAMINS W/ MINERALS TAB PO SCH (09:46)
[2016-12-19] MEDS: FAMOTIDINE (10MG/ML) 2ML VL IV SCH ×2 (09:57→22:02)
[2016-12-19] MEDS ORDERED: VANCOMYCIN 1GM/250ML D5W 250 ML IV ONE (10:00)
[2016-12-19] MEDS: BOOST PLUS 8 ounce PO SCH ×2 (12:00→22:01)
[2016-12-19] MEDS: SODIUM CHLORIDE 0.9% 1,000 ML IV SCH ×2 (12:01→22:01)
[2016-12-19 12:30] VITALS: BP 145/85
[2016-12-19] MEDS ORDERED: FLUCONAZOLE 200MG/100ML 100 ML IV ONE (15:45)
[2016-12-19 16:16] VITALS: BP 146/84
[2016-12-19 22:52] VITALS: BP 136/77
[2016-12-20] MEDS: SODIUM CHLORIDE 0.9% 1,000 ML IV SCH ×2 (04:47→18:01)
[2016-12-20 05:21] VITALS: BP 132/81
[2016-12-20] MEDS: PIPERACILLIN-TAZOB 3.375GM 100 ML IV SCH ×4 (05:30→23:32)
[2016-12-20] MEDS: BOOST PLUS 8 ounce PO SCH ×4 (06:00→21:35)
[2016-12-20 06:18] LABS: Basophils # (auto) 0.1 uL; Basophils % (auto) 0.7 % (0.0-2.0); CONDITION Y; Eosinophils # (auto) 0.4 uL; Eosinophils % (auto) 3.9 % (0.0-7.0); Hematocrit 35.1 % (41.0-53.0); Hemoglobin 11.8 g/dL (13.5-17.5); Lymphocytes # (auto) 1.6 uL; Lymphocytes % (auto) 15.5 % (10.0-50.0); Mean Corpuscular Hemoglobin 30.2 pg (28.0-32.0); Mean Corpuscular Hgb Conc. 33.8 g/dL (32.0-36.0); Mean Corpuscular Volume 89.5 fL (80.0-100.0); Mean Platelet Volume 8.2 fL (7.4-10.4); Monocytes # (auto) 1.4 uL; Monocytes % (auto) 13.1 % (0.0-12.0); Neutrophils # (auto) 6.9 uL; Neutrophils % (auto) 66.8 % (37.0-80.0); Platelet Count (auto) 426 10^3/uL (140-450); Red Cell Distribution Width 13.8 % (11.6-16.0); White Blood Cell 10.3 10^3/uL (4.4-10.8)
[2016-12-20 06:37] LABS: Potassium 3.7 mmol/L (3.5-5.1)
[2016-12-20 06:42] LABS: Albumin 2.9 g/dL (3.4-5.0); BUN/Creatinine Ratio 8.2; Calcium 8.7 mg/dL (8.5-10.1)
[2016-12-20 06:54] LABS: Bilirubin, Total 0.5 mg/dL (0.2-1.0); Total Protein 6.9 g/dL (6.4-8.2)
[2016-12-20] MEDS: PRO-STAT 64 30ML PO SCH ×2 (08:00→18:00)
[2016-12-20 09:30] VITALS: BP 130/71
[2016-12-20] MEDS ORDERED: FLUCONAZOLE 200MG/100ML 100 ML IV SCH (10:00)
[2016-12-20] MEDS: VANCOMYCIN 1GM/250ML D5W 250 ML IV SCH (10:08)
[2016-12-20] MEDS: ASCORBIC ACID 500 MG TAB PO SCH ×2 (10:09→21:35)
[2016-12-20] MEDS: ENOXAPARIN SOD 40 MG/0.4 ML SYRINGE SC SCH (10:09)
[2016-12-20] MEDS: FAMOTIDINE (10MG/ML) 2ML VL IV SCH ×2 (10:09→21:35)
[2016-12-20] MEDS: MULTIPLE VITAMINS W/ MINERALS TAB PO SCH (10:09)
[2016-12-20] MEDS: FLUCONAZOLE 200MG/100ML 100 ML IV SCH (11:33)
[2016-12-20 12:56] VITALS: BP 133/79
[2016-12-20 17:00] VITALS: BP 152/87
[2016-12-20 21:48] VITALS: BP 158/94
[2016-12-20 21:54] VITALS: BP 131/73
[2016-12-21] MEDS: SODIUM CHLORIDE 0.9% 1,000 ML IV SCH ×2 (04:01→14:18)
[2016-12-21 04:34] VITALS: BP 144/88
[2016-12-21] MEDS: BOOST PLUS 8 ounce PO SCH ×2 (05:30→13:27)
[2016-12-21] MEDS: PIPERACILLIN-TAZOB 3.375GM 100 ML IV SCH ×2 (05:30→13:51)
[2016-12-21] MEDS: PRO-STAT 64 30ML PO SCH (08:02)
[2016-12-21 09:29] VITALS: BP 140/79
[2016-12-21] MEDS: ENOXAPARIN SOD 40 MG/0.4 ML SYRINGE SC SCH (10:00)
[2016-12-21] MEDS: FAMOTIDINE (10MG/ML) 2ML VL IV SCH (10:15)
[2016-12-21] MEDS: ASCORBIC ACID 500 MG TAB PO SCH (10:35)
[2016-12-21] MEDS: VANCOMYCIN 1GM/250ML D5W 250 ML IV SCH (10:36)
[2016-12-21] MEDS: MULTIPLE VITAMINS W/ MINERALS TAB PO SCH (10:36)
[2016-12-21] MEDS: FLUCONAZOLE 200MG/100ML 100 ML IV SCH (11:01)
[2016-12-21 13:00] VITALS: BP 149/83
== END 2016-12-21 17:00 | disposition home or self-care (01) | DRG 908 ==
LOC: ER 07:52 → TELE 07:53 → TELE-E-ADS 13:53 → TELE-WESTW 16:38 → WEST WING 12-16 14:18
PROVIDERS: ADMIT Internal Medicine; ATTEND Internal Medicine Pulmonary Disease
PROC: 0WQF0ZZ Repair Abdominal Wall, Open Approach (ICD-10-PCS; principal; 2016-12-18 13:47)
DX: T81.30XA Disruption of wound, unspecified, initial encounter (principal); E44.0 Moderate protein-calorie malnutrition; N18.3 Chronic kidney disease, stage 3 (moderate); E87.1 Hypo-osmolality and hyponatremia; E88.09 Other disorders of plasma-protein metabolism, not elsewhere classified; D63.8 Anemia in other chronic diseases classified elsewhere; Y83.8 Other surgical procedures as the cause of abnormal reaction of the patient, or of later complication, without mention of misadventure at the time of the procedure; E87.6 Hypokalemia; Z87.11 Personal history of peptic ulcer disease; Z83.3 Family history of diabetes mellitus; Z68.33 Body mass index [BMI] 33.0-33.9, adult; Y92.89 Other specified places as the place of occurrence of the external cause
CPT/HCPCS: 36415; 71010; 74177; 80048; 80053; 80202; 81001; 82565; 85025; 85610; 85652; 85730; 86850; 86900; 86901; 87040; 87070; 87075; 87205; 93005; 96361; 96374; 96375; 99291; J0690; J1450; J2001; J2250; J2405; J2543; J2704; J3490; J7060

== ENCOUNTER 2017-01-05 10:21 | Emergency (ER) | payer MEDICAID ==
[2017-01-05 10:58] VITALS: BP 155/77
== END 2017-01-05 14:15 | disposition left against medical advice (07) ==
LOC: ER 10:21
DX: R10.9 Unspecified abdominal pain (principal); Z48.01 Encounter for change or removal of surgical wound dressing; Z53.21 Procedure and treatment not carried out due to patient leaving prior to being seen by health care provider